=== PATIENT | female | born 1960 | race Hispanic/Latino ===

== ENCOUNTER 2018-05-05 11:57 | Emergency (ER) | payer MEDICAID ==
[2018-05-05] MEDS ORDERED: CLEOCIN 900 MG/50 mL 900 MG/50 ML BAG IV ONE (13:29)
--- NOTE | 2018-05-05 13:29 | Emergency Department Report ---
ED General Adult HPI - General Chief complaint: Sore Throat Stated complaint: PROBLEMS WITH TRACHEA Time Seen by Provider: 05/05/18 13:17 Source: patient Mode of arrival: Ambulatory Limitations: No Limitations - History of Present Illness Initial comments: Patient is 57-year-old female, morbidly obese status post tracheostomy secondary to respiratory failure secondary to hepatic encephalopathy, history of portal hypertension. Patient presented to the ER stating that she had tenderness around her tracheostomy tube and she has foul-smelling coming out. Patient denied any fever, nausea or vomiting. No difficulty breathing or shortness of breath. No stridor. Patient stated that she went to [place] primary care physician and he prescribed Keflex but it did not help. Severity scale (0 -10): 9 - Related Data Home Medications Medication Instructions Recorded Confirmed Last Taken ALPRAZolam [Xanax TAB] 0.5 mg PO BID PRN 01/22/15 11/25/15 11/25/15 07:00 Esomeprazole Magnesium [NexIUM] 20 mg PO QDAY 01/22/15 11/25/15 01/22/15 Furosemide [Lasix] 40 mg PO DAILY 01/22/15 11/25/15 11/25/15 07:00 40 mg traMADol [Ultram 50 MG tab] 50 mg PO Q6HR PRN 01/22/15 11/25/15 01/22/15 Previous Rx's Medication Instructions Recorded Last Taken Type HYDROcodone/APAP 5-325 [[place] 1 each PO Q6HR PRN #20 tablet 12/25/15 Unknown Rx 5-325 mg TAB] Ipratropium/Albuterol Sulfate 1 ampul IH TIDRT ampul.neb 12/25/15 Unknown Rx [DUONEB *Not for PRN Use*] Levothyroxine (Nf) [Synthroid (Nf)] 200 mcg PO DAILY@0600 tablet 12/25/15 Unknown Rx levoFLOXacin [Levaquin TAB] 500 mg PO QDAY #8 tablet 12/25/15 Unknown Rx Allergies Allergy/AdvReac Type Severity Reaction Status Date / Time Penicillins Allergy Rash Verified 01/22/15 20:27 hydromorphone HCl AdvReac Anaphylaxis Verified 01/22/15 20:27 [From Dilaudid] ED Review of Systems ROS: Stated complaint: PROBLEMS WITH TRACHEA Other details as noted in HPI Comment: All other systems reviewed and negative Constitutional: denies: chills, fever Respiratory: denies: cough, orthopnea, shortness of breath, SOB with exertion, SOB at rest, stridor, wheezing Cardiovascular: denies: chest pain, palpitations, dyspnea on exertion, orthopnea , edema, syncope, paroxysmal nocturnal dyspnea Gastrointestinal: denies: abdominal pain, nausea, vomiting, diarrhea, constipation, hematemesis, melena, hematochezia Musculoskeletal: denies: back pain Neurological: denies: headache, weakness, numbness, paresthesias, confusion ED Past Medical Hx - Past Medical History Hx Hypertension: No (states sometimes blood pressure is elevated) Hx CVA: No Hx Heart Attack/AMI: No (morbid obesity) Hx Congestive Heart Failure: No Hx Diabetes: No Hx Deep Vein Thrombosis: No Hx GERD: Yes (endoscopy was performed several years ago. Patient does not know which GI ) Hx Liver Disease: Yes (portal HTN, hepatic encephalopathy) Hx Psychiatric Treatment: Yes (anxiety attacks) Hx COPD: No Additional medical history: Hypothyroid, cellulitis in lower exts, esophageal varices - Surgical History Hx Pacemaker: No Hx Internal Defibrillator: No Hx Cholecystectomy: Yes Additional Surgical History: x4. Back Surgery 1993 - Social History Smoking Status: Never Smoker Substance Use Type: None - Medications Home Medications: Home Medications Medication Instructions Recorded Confirmed Last Taken Type ALPRAZolam [Xanax TAB] 0.5 mg PO BID PRN 01/22/15 11/25/15 11/25/15 07:00 History Esomeprazole Magnesium [NexIUM] 20 mg PO QDAY 01/22/15 11/25/15 01/22/15 History Furosemide [Lasix] 40 mg PO DAILY 01/22/15 11/25/15 11/25/15 07:00 History 40 mg traMADol [Ultram 50 MG tab] 50 mg PO Q6HR PRN 01/22/15 11/25/15 01/22/15 History HYDROcodone/APAP 5-325 [[place] 1 each PO Q6HR PRN #20 tablet 12/25/15 Unknown Rx 5-325 mg TAB] Ipratropium/Albuterol Sulfate 1 ampul IH TIDRT ampul.neb 12/25/15 Unknown Rx [DUONEB *Not for PRN Use*] Levothyroxine (Nf) [Synthroid (Nf)] 200 mcg PO DAILY@0600 tablet 12/25/15 Unknown Rx levoFLOXacin [Levaquin TAB] 500 mg PO QDAY #8 tablet 12/25/15 Unknown Rx ED Physical Exam - General Limitations: No Limitations General appearance: alert, in no apparent distress - Head Head exam: Present: atraumatic, normocephalic, normal inspection - Eye Eye exam: Present: normal appearance, PERRL - ENT ENT exam: Present: normal exam, normal orophraynx, mucous membranes moist - Neck Neck exam: Present: tenderness, full ROM, other (tracheostomy tube in place with no obvious discharge and ). Absent: meningismus, lymphadenopathy, thyromegaly - Respiratory Respiratory exam: Present: normal lung sounds bilaterally. Absent: respiratory distress, wheezes, rales, rhonchi, chest wall tenderness, accessory muscle use, decreased breath sounds, prolonged expiratory - Cardiovascular Cardiovascular Exam: Present: regular rate, normal rhythm, normal heart sounds - GI/Abdominal GI/Abdominal exam: Present: soft, normal bowel sounds. Absent: distended, tenderness, guarding, rebound, rigid - Extremities Exam Extremities exam: Present: normal inspection, full ROM, normal capillary refill. Absent: calf tenderness - Back Exam Back exam: Present: normal inspection, full ROM. Absent: tenderness, CVA tenderness (R), CVA tenderness (L), muscle spasm, paraspinal tenderness - Neurological Exam Neurological exam: Present: alert, oriented X3, CN II-XII intact, normal gait, reflexes normal - Skin Skin exam: Present: warm, intact, normal color ED Course Vital Signs 05/05/18 05/05/18 05/05/18 12:19 13:30 13:40 Temperature 98.4 F 98.9 F Pulse Rate 80 102 H Respiratory 18 20 Rate Blood Pressure 107/64 Blood Pressure 107/64 [Right] O2 Sat by Pulse 97 Oximetry O2 Sat by Pulse 97 Oximetry [ Assessment] 05/05/18 05/05/18 14:18 15:00 Temperature Pulse Rate 70 Respiratory 22 16 Rate Blood Pressure Blood Pressure [Right] O2 Sat by Pulse 96 Oximetry O2 Sat by Pulse Oximetry [ Assessment] ED Medical Decision Making - Lab Data Result diagrams: 05/05/18 13:26 05/05/18 13:26 - Radiology Data Radiology results: report reviewed CT soft tissue neck was IV contrast showed no acute abnormalities. - Medical Decision Making Ms López is 57-year-old female, morbidly obese status post tracheostomy secondary to respiratory failure secondary to hepatic encephalopathy, history of portal hypertension. Patient presented to the ER stating that she had tenderness around her tracheostomy tube and she has foul-smelling coming out. Patient denied any fever, nausea or vomiting. No difficulty breathing or shortness of breath. No stridor. Patient stated that she went to [place] primary care physician and he prescribed Keflex but it did not help. Patient stated that she is feeling much better. Labs reviewed and it did not show any acute finding. CT soft tissue neck was IV contrast did not show any abscess or fat stranding to suggest infection. Patient tracheostomy tube cleaned and suctioned by respiratory therapist. Patient received clindamycin IV. I advised the patient to follow up with her primary care physician in the next 2-3 days. Critical care attestation.: If time is entered above; I have spent that time in minutes in the direct care of this critically ill patient, excluding procedure time. ED Disposition Clinical Impression: Neck pain, Tracheostomy infection Disposition: DC-01 TO HOME OR SELFCARE Is pt being admited?: No Condition: Stable Instructions: Tracheostomy Care (ED), Cellulitis (ED) Referrals: PRIMARY CARE, [Primary Care Provider] - 3-5 Days
[2018-05-05 13:50] LABS: Eosinophils # (Auto) 0.3 K/mm3 (0.0-0.4); Eosinophils % (Auto) 7.8 % (0.0-4.3); Hematocrit 38.6 % (30.3-42.9); Lymphocytes # (Auto) 1.2 K/mm3 (1.2-5.4); Lymphocytes % (Auto) 28.4 % (13.4-35.0); Mean Corpuscular HGB Conc 34 % (30-34); Mean Corpuscular Hemoglobin 31 pg (28-32); Mean Corpuscular Volume 93 fl (79-97); Monocytes # (Auto) 0.5 K/mm3 (0.0-0.8); Monocytes % (Auto) 12.7 % (0.0-7.3); Platelet Count 127 K/mm3 (140-440); Red Blood Count 4.17 M/mm3 (3.65-5.03); Red Cell Distribution Width 17.9 % (13.2-15.2)
[2018-05-05 14:04] LABS: Calcium 8.9 mg/dL (8.4-10.2)
[2018-05-05] MEDS ORDERED: ATIVAN ONE (15:06)
[2018-05-05] MEDS ORDERED: ATIVAN IV ONE (15:06)
--- NOTE | 2018-05-05 16:10 | Cat Scan Report ---
FINAL REPORT PROCEDURE: CT NECK W CON TECHNIQUE: Computerized axial tomography of the soft tissue neck was performed following the IV injection of iodinated nonionic contrast. HISTORY: neck pain and swelling a round tracheostomy tube. COMPARISON: No prior studies are available for comparison. FINDINGS: Skull and scalp: Normal. Paranasal sinuses: Normal. Nasopharynx: Normal . Oral cavity: Mildly prominent lingual tonsils. Epiglottis/vallecula: Normal . Larynx/pyriform sinuses: Normal. Tracheostomy tube is present. No subcutaneous stranding or fluid collection is seen. Thyroid gland: Not well seen and may be atrophic or resected. Lymph nodes: None enlarged . Salivary glands: Normal . Upper thorax: Normal . IMPRESSION: Tracheostomy tube is present. No subcutaneous stranding or fluid collection is seen at the site of the tracheostomy
[2018-05-05 17:12] VITALS: BP 115/64
== END 2018-05-05 17:11 | disposition home or self-care (01) ==
LOC: ED 11:57
DX: J95.02 Infection of tracheostomy stoma (principal); Z90.49 Acquired absence of other specified parts of digestive tract; E66.01 Morbid (severe) obesity due to excess calories; K21.9 Gastro-esophageal reflux disease without esophagitis; Z88.6 Allergy status to analgesic agent; Z88.0 Allergy status to penicillin
CPT/HCPCS: 36415; 70491; 80048; 85025; 87040; 96365; 96375; 99284; J2060; Q9967